=== PATIENT | female | born 1985 | race Caucasian/White ===

== ENCOUNTER 2024-11-12 22:56 | Emergency (ER) | payer SELFPAY ==
[2024-11-13] MEDS ORDERED: ONDANSETRON 4 MG/2 ML VIAL ONE (00:45)
[2024-11-13] MEDS ORDERED: NA CHLORIDE 0.9% 1,000 ML ONE (00:46)
[2024-11-13] MEDS ORDERED: MORPHINE 4 MG/ML SYR ONE ×2 (00:46→02:23)
[2024-11-13] MEDS ORDERED: FAMOTIDINE 20 MG/2 ML VIAL IV ONE (00:46)
[2024-11-13 00:53] LABS: Absolute Basophils 0.1 K/uL (0-0.5); Absolute Eosinophils 0.2 K/uL (0-0.5); Absolute Lymphocytes (CBC) 3.1 K/uL (0.7-4.9); Absolute Monocytes 0.6 K/uL (0.1-1.3); Basophils % 0.7 % (0-1.3); Eosinophils % 2.3 % (0-4.4); Hematocrit 32.6 % (36.0-45.0); Hemoglobin 10.8 g/dL (12.0-15.0); MCH 27.8 pg (27.0-35.0); MCV 84.1 fL (80-100); MPV 8.5 fL (7.6-11.3); Monocytes % 6.1 % (3.3-12.3); Neutrophils % 59.9 % (41.7-73.7); Nucleated Red Blood Cells % 0.2 % (0-0); Platelets 329 thou/uL (152-406); RBC Red Blood Cell Count 3.88 M/uL (3.86-4.86); Red Cell Distribution Width 14.7 % (12.1-15.2)
[2024-11-13 01:10] LABS: ALT/SGPT 20 U/L (13-56); Albumin 2.9 g/dL (3.4-5.0); Albumin/Globulin Ratio 0.8 (1.1-1.8); Alkaline Phosphatase 79 U/L (45-117); Anion Gap 10.6 mEq/L (5.0-15.0); BUN Blood Urea Nitrogen 14 mg/dL (7-18); Bicarbonate 25 mEq/L (21-32); Bilirubin Total 0.2 mg/dL (0.2-1.0); Globulin 3.8 g/dL (2.3-3.5); Glomerular Filtration Rate 116 ml/min (=/>90); Glucose Level 96 mg/dL (74-106); Lipase 46 U/L (13-75); Potassium 3.6 mEq/L (3.5-5.1); Protein, Total 6.7 g/dL (6.4-8.2); Sodium Level 140 mEq/L (136-145); Troponin High Sensitivity 4.3 pg/mL (<58.9)
[2024-11-13 01:11] LABS: AST/SGOT < 10 U/L (15-37); Bilirubin Direct < 0.2 mg/dL (0-0.2)
--- NOTE | 2024-11-13 05:43 | RAD REPORT ---
EXAM DESCRIPTION: Chest Single View CLINICAL HISTORY: CHEST PAIN COMPARISON: None TECHNIQUE: Single AP view of the chest. FINDINGS: Lung volumes adequate. Cardiac silhouette is normal in size. No pneumothorax. No large pleural effusion. No focal consolidation. No acute bony finding. IMPRESSION: No evidence of acute cardiopulmonary disease. Electronically signed by: Roque Varela MD 11/13/2024 03:05 AM CDT RP TYG Due to temporary technical issues with the PACS/[employer] reporting system, reports are being corona d by the in-house radiologist without review as a courtesy to ensure prompt reporting the interpreting radiologist is fully responsible for the content of the report. Transcribed Date/Time: 11/13/2024 5:42 AM
--- NOTE | 2024-11-13 06:04 | ER ---
Nurse's Notes [facility] Name: Nanette Yanez Age: 38 yrs Sex: Female : 1985 Arrival Date: 11/12/2024 Time: 22:56 Bed 16 Private MD: Diagnosis: Biliary colic, abdominal pain Presentation: 11/12 23:34 Chief complaint: Patient states: chest pain / back pain x 3 days seen at [facility] reports kl no diagnosis. Coronavirus screen: Vaccine status: Patient reports being unvaccinated. Ebola Screen: Patient negative for fever greater than or equal to 101.5 degrees Fahrenheit, and additional compatible Ebola Virus Disease symptoms. Initial Sepsis Screen: Does the patient meet any 2 criteria? Does the patient have a suspected source of infection? No. Patient's initial sepsis screen is negative. Risk Assessment: Do you want to hurt yourself or someone else? Patient reports no desire to harm self or others. 23:34 Method Of Arrival: Ambulatory 23:34 Acuity: SEBASTIEN 3 kl Triage Assessment: 23:37 General: Appears uncomfortable, Behavior is calm, cooperative. Pain: Complains of pain kl in back and chest Pain currently is 10 out of 10 on a pain scale. Cardiovascular: Reports chest pain, Rhythm is sinus rhythm. Respiratory: No deficits noted. Historical: - Allergies: 23:36 No Known Allergies; kl - Home Meds: 23:36 None [Active]; kl - PMHx: 23:36 None; kl - PSHx: 23:36 wrist; kl - Immunization history:: Adult Immunizations not immunized. - Infectious Disease History:: Denies. - Social history:: Smoking status: Patient denies any tobacco usage or history of. Screenin/02 00:00 [facility] ED Fall Risk Assessment (Adult) History of falling in the last 3 months, ha1 including since admission No falls in past 3 months (0 pts) Confusion or Disorientation No (0 pts) Intoxicated or Sedated Yes (3 pts) Impaired Gait No (0 pts) Mobility Assist Device Used No (0 pt) Altered Elimination No (0 pt) Score/Fall Risk Level 0 - 2 = Low Risk Oriented to surroundings, Maintained a safe environment, Educated pt \T\ family on fall prevention, incl call for assistance when getting out of bed, Hourly rounding (assess needs \T\ fall precautionary measures) done. Abuse screen: Denies threats or abuse. Denies injuries from another. Nutritional screening: No deficits noted. Tuberculosis screening: No symptoms or risk factors identified. Assessment: 00:00 General: Appears uncomfortable, Behavior is cooperative. Pain: Complains of pain in ha1 right upper quadrant and epigastric area and chest Pain radiates to back Pain currently is 9 out of 10 on a pain scale. Quality of pain is described as aching, Pain began. Neuro: Level of Consciousness is awake, alert, obeys commands, Oriented to person, place, time, Appropriate for age. Cardiovascular: Capillary refill < 3 seconds Patient's skin is warm and dry. Cardiovascular: Reports chest pain. Respiratory: Airway is patent Respiratory effort is even, unlabored, Respiratory pattern is regular, symmetrical. GI: Abdomen is round obese, Reports epigastric pain. 01:00 Reassessment: Patient and/or family updated on plan of care and expected duration. Pain ha1 level reassessed. Patient is alert, oriented x 3, equal unlabored respirations, skin warm/dry/pink. 02:20 Reassessment: Patient and/or family updated on plan of care and expected duration. Pain ha1 level reassessed. Patient is alert, oriented x 3, equal unlabored respirations, skin warm/dry/pink. 03:50 Reassessment: Patient and/or family updated on plan of care and expected duration. Pain ha1 level reassessed. Patient is alert, oriented x 3, equal unlabored respirations, skin warm/dry/pink. Patient states feeling better. Patient states symptoms have improved. 04:20 Reassessment: Patient and/or family updated on plan of care and expected duration. Pain ha1 level reassessed. Patient is alert, oriented x 3, equal unlabored respirations, skin warm/dry/pink. 05:20 Reassessment: Patient and/or family updated on plan of care and expected duration. Pain ha1 level reassessed. Patient is alert, oriented x 3, equal unlabored respirations, skin warm/dry/pink. Patient states feeling better. Patient states symptoms have improved. Vital Signs: 11/12 23:34 BP 162 / 105; Pulse 79; Resp 18; Temp 97.7; Pulse Ox 99% on R/A; Weight 77.11 kg (R); kl Height 4 ft. 11 in. ; Pain 10/10; 11/13 01:00 BP 156 / 68; Pulse 63; Resp 17 S; Pulse Ox 98% ; ha1 02:00 BP 160 / 98; Pulse 62; Resp 17 S; Pulse Ox 98% on R/A; ha1 03:20 BP 155 / 84; Pulse 62; Resp 17 S; Pulse Ox 100% on R/A; ha1 05:20 BP 148 / 82; Pulse 63; Resp 16 S; Pulse Ox 98% on R/A; ha1 11/12 23:34 Body Mass Index 34.34 (77.11 kg, 149.86 cm) 11/12 23:34 Pain Scale: Adult ED Course: 11/12 22:57 Patient arrived in ED. im 23:06 Doron Leal PA is PHCP. cp 23:06 Fide Arriola MD is Attending Physician. cp 23:36 Triage completed. 11/13 00:00 Patient maintains SpO2 saturation greater than 95% on room air. ha1 00:00 Patient has correct armband on for positive identification. Placed in gown. Bed in low ha1 position. Call light in reach. Side rails up X 1. Adult w/ patient. 00:00 Client placed on continuous cardiac and pulse oximetry monitoring. NIBP monitoring ha1 applied. quality assurance monitor body on. 00:00 Arm band placed on right wrist. ha1 00:05 Missed attempt(s): 24 gauge in right forearm. Bleeding controlled, band aid applied, ha1 catheter tip intact. 00:10 Missed attempt(s): 24 gauge in left Bleeding controlled, band aid applied, catheter tip ha1 intact. 00:24 Basic Metabolic Panel Sent. ha1 00:24 CBC with Diff Sent. ha1 00:24 Troponin HS Sent. ha1 01:05 Inserted saline lock: 22 gauge in right upper arm, using aseptic technique. Blood lg3 collected. Flushed with 10 mL NS. 01:42 XRAY Chest (1 view) In Process Unspecified. EDMS 03:17 Rosemary Mcgrath, RN is Primary Nurse. ha1 04:00 No provider procedures requiring assistance completed. ha1 04:00 IV discontinued, intact, bleeding controlled, No redness/swelling at site. Pressure ha1 dressing applied. 04:29 Chest Abd Pelvis Wo Con In Process Unspecified. EDMS 06:03 Rasheed Gale MD is Referral Physician. sp3 Administered Medications: 01:07 Drug: Ondansetron IVP 4 mg IVP once; over 2 minutes Route: IVP; Site: right upper arm; ha1 01:30 Follow up: Response: No adverse reaction; Marked relief of symptoms ha1 01:08 Drug: Famotidine IVP 20 mg IVP once; dilute with 10 mL 0.9% NaCl; give over 2 minutes ha1 Route: IVP; Site: right upper arm; 01:30 Follow up: Response: No adverse reaction; Marked relief of symptoms ha1 01:09 Drug: morphine IVP or IV 4 mg IVP once over 4 mins Route: IVP; Infused Over: 4 mins; ha1 Site: right upper arm; 01:30 Follow up: Response: No adverse reaction; Marked relief of symptoms; Pain is decreased ha1 01:10 Drug: NS 0.9% IV 1000 ml IV at 1 bolus Per protocol; to be given as a bolus over 60 ha1 minutes Route: IV; Rate: 1 bolus; Site: right upper arm; 06:21 Follow up: Response: No adverse reaction; IV Status: Completed infusion ha1 03:12 Not Given (Physician Discretion): morphineor iv 4 mg IVP once over 4 mins 03:17 Drug: morphine IM 4 mg IM once Route: IM; Site: left deltoid; ha1 03:50 Follow up: Response: No adverse reaction; Marked relief of symptoms; Pain is decreased; ha1 RASS: Alert and Calm (0) Medication: 04:00 VIS not applicable for this client. ha1 Outcome: 04:00 Discharged to home ambulatory, with family, ha1 04:00 Condition: stable 04:00 Discharge instructions given to patient, family, Instructed on discharge instructions, follow up and referral plans. Demonstrated understanding of instructions, follow-up care, 06:03 Discharge ordered by . sp3 06:22 Patient left the ED. ha1 Signatures: Dispatcher [employer] EDMS Monse Brown RN RN Doron West PA PA cp Able, Lacie, RN RN lg3 Fide Arriola MD MD sp3 Rosemary Mcgrath RN RN ha1 Ella Nagy im
--- NOTE | 2024-11-13 06:04 | EDPHYS ---
Physician Documentation [facility] Name: Nanette Yanez Age: 38 yrs Sex: Female : 1985 Arrival Date: 11/12/2024 Time: 22:56 Bed 16 Private MD: ED Physician Fide Arriola HPI: 11/13 00:00 This 38 yrs old Female presents to ER via Ambulatory with complaints of Chest Pain, cp Numbness - of back, Abdominal Pain. 00:00 The patient or guardian reports chest pain that is located primarily in the substernal cp area. 00:00 Onset: The symptoms/episode began/occurred 3 day(s) ago. cp 00:00 The patient presents with abdominal pain in the epigastric area, in the right upper cp quadrant. The symptoms radiate to back. Associated signs and symptoms: Pertinent positives: nausea. Historical: - Allergies: 11/12 23:36 No Known Allergies; kl - Home Meds: 23:36 None [Active]; kl - PMHx: 23:36 None; kl - PSHx: 23:36 wrist; kl - Immunization history:: Adult Immunizations not immunized. - Infectious Disease History:: Denies. - Social history:: Smoking status: Patient denies any tobacco usage or history of. ROS: 11/13 00:05 Constitutional: Negative for body aches, chills, fever, poor PO intake, cp 00:05 Eyes: Negative for injury, pain, redness, and discharge, cp 00:05 ENT: Negative for drainage from ear(s), ear pain, sore throat, difficulty swallowing, difficulty handling secretions, 00:05 Cardiovascular: Positive for chest pain, of the substernal, Negative for edema, palpitations, 00:05 Respiratory: Negative for cough, shortness of breath, wheezing, 00:05 Abdomen/GI: Positive for abdominal pain, nausea, of the epigastric area and right upper quadrant, Negative for vomiting, diarrhea, constipation, 00:05 Back: Positive for pain at rest, 00:05 Neuro: Negative for altered mental status, dizziness, headache, 00:05 All other systems are negative, Exam: 11/12 23:43 ECG was reviewed by the Attending Physician. cp 11/13 00:10 Constitutional: The patient appears in no acute distress, alert, awake, cp non-diaphoretic, well developed, well nourished, obese, uncomfortable, 00:10 Head/Face: Normocephalic, atraumatic. cp 00:10 Eyes: Periorbital structures: appear normal, Conjunctiva: normal, no exudate, no injection, Sclera: no appreciated abnormality, Lids and lashes: appear normal, bilaterally, 00:10 ENT: External ear(s): are unremarkable, Nose: is normal, Mouth: Lips: moist, Oral mucosa: moist, Posterior pharynx: Airway: no evidence of obstruction, patent, 00:10 Chest/axilla: Inspection: normal, Palpation: crepitus, is not appreciated, tenderness, of the mid-sternal area, 00:10 Cardiovascular: Rate: normal, Edema: is not appreciated, JVD: is not appreciated, 00:10 Respiratory: the patient does not display signs of respiratory distress, Respirations: normal, no use of accessory muscles, no retractions, labored breathing, is not present, Breath sounds: are clear throughout, no decreased breath sounds, no stridor, no wheezing, 00:10 Abdomen/GI: Inspection: abdomen appears normal, Bowel sounds: active, all quadrants, Palpation: soft, in all quadrants, moderate abdominal tenderness, in the epigastric area and right upper quadrant, rebound tenderness, is not appreciated, involuntary guarding, is not appreciated, 00:10 Back: CVA tenderness, is absent, 00:10 Neuro: Orientation: to person, place \T\ time. Mentation: is normal, Cerebellar function: is grossly normal, Motor: moves all fours, strength is normal, Sensation: is normal, Vital Signs: 11/12 23:34 BP 162 / 105; Pulse 79; Resp 18; Temp 97.7; Pulse Ox 99% on R/A; Weight 77.11 kg (R); kl Height 4 ft. 11 in. ; Pain 04/23; 11/13 01:00 BP 156 / 68; Pulse 63; Resp 17 S; Pulse Ox 98% ; ha1 02:00 BP 160 / 98; Pulse 62; Resp 17 S; Pulse Ox 98% on R/A; ha1 03:20 BP 155 / 84; Pulse 62; Resp 17 S; Pulse Ox 100% on R/A; ha1 05:20 BP 148 / 82; Pulse 63; Resp 16 S; Pulse Ox 98% on R/A; [facility] 11/12 23:34 Body Mass Index 34.34 (77.11 kg, 149.86 cm) kl 11/12 23:34 Pain Scale: Adult kl MDM: 11/12 23:37 Medical Screening Exam initiated 11/13 00:00 Differential diagnosis: acute myocardial infarction, acute pericarditis, cholecystitis, cp Cholelithiasis pancreatitis, pericarditis, pleurisy, pulmonary embolus, thoracic aortic disection, appendicitis, bowel obstruction. 06:02 Data reviewed: vital signs, nurses notes, lab test result(s), radiologic studies. ED sp3 course: Gallstone at gallbladder neck. LFTs within normal limits. Patient in no acute distress currently. I advised her to follow-up with surgery for outpatient removal of gallbladder. She knows to return if she gets worse for potential admission.. 11/12 23:59 Order name: Basic Metabolic Panel; Complete Time: 01:17 [facility] 11/13 01:17 Interpretation: Normal except: CL 108; CA 8.1. 11/12 23:59 Order name: CBC with Diff; Complete Time: 01:17 [facility] 11/13 01:18 Interpretation: Normal except: HGB 10.8; HCT 32.6. 11/12 23:59 Order name: Troponin HS; Complete Time: 01:17 [facility] 11/13 01:18 Interpretation: Reviewed. 11/13 00:02 Order name: D-Dimer; Complete Time: 01:57 11/13 01:57 Interpretation: Reviewed. 11/13 00:49 Order name: Liver (Hepatic) Function; Complete Time: 01:17 [facility] 11/13 01:18 Interpretation: Normal except: AST < 10; IBILI, CALC 0.0; ALB 2.9; GLOB 3.8; A/G 0.8. 11/13 00:49 Order name: Lipase; Complete Time: 01:17 [facility] 11/13 01:17 Order name: XRAY Chest (1 view) 11/13 04:29 Order name: Chest Abd Pelvis Wo Con [facility] 11/12 23:59 Order name: EKG; Complete Time: 23:59 [facility] 11/12 23:59 Order name: Cardiac monitoring; Complete Time: 00:24 [facility] 11/12 23:59 Order name: EKG - Nurse/Tech; Complete Time: 23:59 ha1 11/12 23:59 Order name: IV Saline Lock; Complete Time: 01:10 11/12 23:59 Order name: Labs collected and sent; Complete Time: 00:24 ha11/12 23:59 Order name: O2 Per Protocol; Complete Time: 00:24 ha1 11/12 23:59 Order name: O2 Sat Monitoring; Complete Time: 00:24 ha EC/01 23:43 Rate is 68 beats/min. Rhythm is regular. UT interval is normal. QRS interval is normal. cp QT interval is normal. T waves are Inverted in lead aVR. Interpreted by me. Reviewed by me. Administered Medications: 11/13 01:07 Drug: Ondansetron IVP 4 mg IVP once; over 2 minutes Route: IVP; Site: right upper arm; ha1 01:30 Follow up: Response: No adverse reaction; Marked relief of symptoms ha1 01:08 Drug: Famotidine IVP 20 mg IVP once; dilute with 10 mL 0.9% NaCl; give over 2 minutes ha1 Route: IVP; Site: right upper arm; 01:30 Follow up: Response: No adverse reaction; Marked relief of symptoms ha1 01:09 Drug: morphine IVP or IV 4 mg IVP once over 4 mins Route: IVP; Infused Over: 4 mins; ha1 Site: right upper arm; 01:30 Follow up: Response: No adverse reaction; Marked relief of symptoms; Pain is decreased ha1 01:10 Drug: NS 0.9% IV 1000 ml IV at 1 bolus Per protocol; to be given as a bolus over 60 ha1 minutes Route: IV; Rate: 1 bolus; Site: right upper arm; 06:21 Follow up: Response: No adverse reaction; IV Status: Completed infusion ha1 03:12 Not Given (Physician Discretion): morphineor iv 4 mg IVP once over 4 mins kl 03:17 Drug: morphine IM 4 mg IM once Route: IM; Site: left deltoid; ha1 03:50 Follow up: Response: No adverse reaction; Marked relief of symptoms; Pain is decreased; ha1 RASS: Alert and Calm (0) Disposition Summary: 11/13/24 06:03 Discharge Ordered Notes: Location: Home sp3 Condition: Stable sp3 Diagnosis - Biliary colic, abdominal pain sp3 Followup: sp3 - With: Rasheed Gale MD - When: Upon discharge from the Emergency Department - Reason: Recheck today's complaints Discharge Instructions: - Discharge Summary Sheet sp3 - Biliary Colic, Adult sp3 Forms: - Medication Reconciliation Form sp3 - Antibiotic Education sp3 - Prescription Opioid Use sp3 - Patient Portal Instructions sp3 - Leadership Thank You Letter sp3 - Work release form ha1 Prescriptions: - Tramadol 50 mg Oral Tablet - take 1 tablet ORAL route every 8 hours as needed; 12 tablet; Refills: 0, sp3 Product Selection Permitted Signatures: Dispatcher [employer] EDMS Monse Brown, RN RN Doron West PA PA cp Patel, Setul, MD MD sp3 Rosemary Mcgrath RN RN ha1 Corrections: (The following items were deleted from the chart) 00:03 00:03 D-DIMER+COAG.LAB.BRZ ordered. EDMS EDMS 00:48 00:03 LIPASE+C.LAB.BRZ ordered. EDMS EDMS 00:48 00:03 HEPATIC FUNCTION+C.LAB.BRZ ordered. EDMS EDMS 04:29 01:21 Chest For PE Angio+CT.RAD.BRZ ordered. EDMS EDMS 04:30 01:21 Abdomen Pelvis W Con+CT.RAD.BRZ ordered. EDMS EDMS
--- NOTE | 2024-11-13 06:58 | RAD REPORT ---
EXAM: CT Chest, Abdomen and Pelvis Without Intravenous Contrast CLINICAL HISTORY: The patient is 38 years old and is Female; Chest pain. TECHNIQUE: Axial computed tomography images of the chest, abdomen and pelvis without intravenous co ntrast. Sagittal and coronal reformatted images were created and reviewed. This CT exam was performed using one or more of the following dose reduction techniques: automated exposure control, adjustment of the mA and/or kV according to patient size, and/or use of iterative reconstruction technique. COMPARISON: XR Chest 11/13/2024, 1:32:52 AM. FINDINGS: CHEST: Lungs: Unremarkable. No mass. No consolidation or ground glass opacities. Pleural space: Unremarkable. No significant effusion. No pneumothorax. Heart: Mild cardiac enlargement. No significant pericardial fluid. ABDOMEN: Liver: Unremarkable. Gallbladder and bile ducts: Cholelithiasis including a 2.5 cm stone that appears impacted in the gallbladder neck. No ductal dilation. Pancreas: Unremarkable. No ductal dilation. Spleen: Unremarkable. No splenomegaly. Adrenals: Unremarkable. No mass. Kidneys and ureters: Punctate right nephrolithiasis. The kidneys are otherwise unremarkable. No h ydronephrosis. Stomach and bowel: Colonic diverticulosis. No bowel dilatation or obstruction. No bowel wall thickening. PELVIS: Appendix: The visualized appendix is normal. No pericecal inflammation to suggest acute appendici tis. Bladder: Unremarkable. No stones. Reproductive: 2.5 cm right ovarian simple cyst. Uterus is present. CHEST, ABDOMEN and PELVIS: Intraperitoneal space: Unremarkable. No significant fluid collection. No free air. Bones/joints: No acute fracture visualized in the spine, pelvis or proximal femora. Mild degenera tive changes in the lower lumbar spine. No dislocation. Soft tissues: Unremarkable. Vasculature: Unremarkable. No aortic aneurysm. Lymph nodes: Unremarkable. No enlarged lymph nodes. IMPRESSION: 1. Cholelithiasis including a 2.5 cm stone that appears impacted in the gallbladder neck. 2. No acute findings in the chest. Study performed without IV contrast. 3. Colonic diverticulosis. 4. 2.5 cm right ovarian simple cyst. No follow-up imaging recommended. 5. Additional non-emergent findings as above. Electronically signed by: Brigida Rosales MD 11/13/2024 05:34 AM CDT RP V2 Due to temporary technical issues with the [employer] reporting system, reports are being corona d by the in-house radiologist without review as a courtesy to ensure prompt reporting the interpreting radiologist is fully responsible for the content of the report. Transcribed Date/Time: 11/13/2024 6:58 AM
[2024-11-13 07:10] VITALS: TEMP 97.7
[2024-11-13 07:15] VITALS: BP 148/82; O2SAT 98
--- NOTE | 2024-11-13 16:26 | EKG ---
Test Date: 2024-11-12 Test Time: 23:36:05 [employer]room Builder: ABILIO MEASUREMENT RESULTS: Intervals: Rate: 68 OR: 128 QRSD: 86 QT: 404 QTc: 429 [place]xton: P: 85 OR: 128 QRS: 11 T: 29 INTERPRETIVE STATEMENTS: Normal sinus rhythm Possible Lateral infarct, age undetermined Abnormal ECG No previous ECG available for comparison Electronically Signed On 11-13-24 16:25:05 CDT by Laurent Li
== END 2024-11-13 06:22 | disposition home or self-care (01) ==
LOC: ER 22:56
DX: K80.50 Calculus of bile duct without cholangitis or cholecystitis without obstruction (principal)
CPT/HCPCS: 36415; 71045; 71250; 74176; 80048; 80076; 83690; 84484; 85025; 85379; 93005; 96361; 96372; 96374; 96375; 99285; J2405; J7030